=== PATIENT | male | born 1955 | race Caucasian/White ===

== ENCOUNTER → 2016-05-14 | Outpatient (CLI) | payer OTHER ==
[~2016-05-14] MED LIST: ASP81TEC PO; ATOR80TA76 PO; ATR20T PO; CARV6.252 PO; DABI150C5 PO; DIGO0.25 PO; FURO40TA4 PO; HYDR1TAB PO; LSNP20T PO; MAG OXIDE PO; METF-380 PO; PANT40TA3 PO; RIVA20TA PO; SIMV80TA3 PO; SPIR25TA3 PO
--- OUTSIDE RECORDS SUMMARY | 2016-05-14 15:24 | XMS REPORT | Continuity of Care Document ---
Author Author [facility] Organization [facility] Address Unknown Phone Unavailable Care Team Providers Care Supervisor [employer] Name Role Phone TEMO BARTH MD PCP Insurance Providers Payer Name Policy Number Subscriber Name Relationship [employer] [id number] Raul Carrillo 20 Self / Same As Patient Advance Directives Directive Response Recorded Date/Time Advance Directives No 12/24/15 1:20pm Health Care Power of Monument Erector No 12/24/15 1:20pm Organ Donor No 12/24/15 1:20pm Resuscitation Status Full Code 12/24/15 1:20pm Problems No problem information available. Medications Current Home Medications Medication Dose Units Route Directions Days/Qty Instructions Start Date Metformin Hcl (Glucophage) 1,000 Mg 1,000 Mg Oral Twice A Day With Meals 10/21/12 Lisinopril 20 Mg 20 Mg Oral Twice A Day 10/21/12 Atorvastatin Calcium 80 Mg 40 Mg Oral Daily 12/24/15 Furosemide 40 Mg 40 Mg Oral Daily 12/24/15 Spironolactone 25 Mg 25 Mg Oral Twice A Day 12/24/15 Carvedilol 6.25 Mg 6.25 Mg Oral Twice A Day 12/24/15 Digoxin 0.25 Mg/5 Ml 0.25 Mg Oral Daily 12/24/15 Rivaroxaban 20 Mg 20 Mg Oral Daily 12/24/15 Past Home Medications Medication Directions Ordered Status Aspirin 81 Mg Tabec, 81 Mg Oral Daily 10/21/12 Discontinued Simvastatin 80 Mg Tablet, 80 Mg Oral Daily 10/21/12 Discontinued Atorvastatin Calcium 20 Mg Tablet, 1 Each Oral Bedtime 10/21/12 Discontinued Atorvastatin Calcium 20 Mg Tablet, 20 Mg Oral Bedtime 11/25/12 Discontinued Acetaminophen/Hydrocodone Bitart 1 Each Tablet, 1 - 2 Each Oral Q4-6HRS as needed 11/29/12 Discontinued Social History Social History Problem Response Recorded Date/Time Alcohol Use Denies Use 10/21/2012 3:34am Recreational Drug Use No 10/21/2012 3:34am Recent Foreign Travel No 12/24/2015 1:20pm Recent Infectious Disease Exposure No 12/24/2015 1:20pm Smoking Status Never a Smoker 12/24/2015 1:29pm Query Response Start Date Stop Date Smoking Status Never a Smoker Hospital Discharge Instructions Patient Instructions Physician Instructions Follow Up/Plan F/u with Dr Randle on 12/27/15 Do not take METFORMIN until the morning of 12/27/15 CARDIAC CATH DISCHARGE INSTRUCTIONS *Hold Metformin for 48 hours post heart cath. ACTIVITY * Go Home directly and rest. * Limit activity of the leg (or wrist if it was used) for 7 days including aerobics, swimming, jogging, bicycling, etc. * Restrict stair-climbing for 7 days if possible, if not, climb up with your non-cath leg, then bring together on the same step. * Avoid lifting, pushing, pulling or excessive movement of the affected extremity for 7 days. * Customary sexual activity may be resumed after 2 days-use caution not to use a position that strains or causes pain to the affected extremity. * No driving for 24 hours. * NO SMOKING. * Avoid straining for bowel movements for 7 days. * Gentle walking on level ground is allowed. * Returning to work will depend on the type of procedure and the results. Your doctor will discuss this with you. CALL YOUR DOCTOR FOR ANY OF THE FOLLOWING: *If bleeding from the puncture site occurs- Apply gentle pressure to site with clean cloth and call your doctor or EMS. * If a knot or lump forms under the skin, increases in size, or causes pain. * If bruising appears to be worsening or moving further down your leg instead of disappearing. * Temperature above 101 F. CARE OF YOUR GROIN INCISION; * Bruising or purple discoloration of the skin near the puncture site is common. * You may shower only, no bathtub bathing for 5 days. Be careful to avoid slipping as your leg may feel stiff. * If a closure device was used on your femoral artery, please see the attached guide regarding care of the device and your leg. * REMOVE the dressing from your groin the next day after your procedure in the shower. CARE OF YOUR WRIST INCISION; * Bruising or purple discoloration of the skin near the puncture site is common. * You may shower. * DO NOT submerge wrist. * Remove dressing in 24 hours. Patient Instructions: Do not take METFORMIN until the morning of 12/27/15 Discharge Diet: Low Sodium Diet Pneu Vac Indicated: Yes Care Plan Patient Instructions:: Do not take METFORMIN until the morning of 12/27/15 Plan of Care Discharge Date 12/24/15 8:22pm Instructions/Education Provided CARDIAC CATH DISCHARGE INSTRUC Prescriptions See Medication Section Functional Status Query Response Date Recorded Patient Orientation Person Place Time Situation December 24, 2015 8:36pm Allergies, Adverse Reactions, Alerts No known allergies. Immunizations No immunization records. Vital Signs Acute Vital Signs Vital Response Date/Time Temperature (Fahrenheit) 97.4 degrees F (97.6 - 99.5) 12/24/2015 4:20pm Temperature (Calculated Celsius) 36.49523 degrees C (36.4 - 37.5) 12/24/2015 4:20pm Temperature Source Temporal 12/24/2015 4:20pm Pulse Rate (adult) 89 bpm (60 - 90) 12/24/2015 7:30pm Respiratory Rate 13 bpm (12 - 24) 12/24/2015 7:30pm O2 Sat by Pulse Oximetry 94 % (88 - 100) 12/24/2015 7:30pm Blood Pressure 104/81 mm Hg 12/24/2015 7:30pm Blood Pressure Mean 89 mm Hg 12/24/2015 7:30pm Pain Numeric Pain Scale 0-No Pain 12/24/2015 8:00pm Height (Feet) 5 feet 12/24/2015 1:25pm Height (Inches) 9.00 inches 12/24/2015 1:25pm Height (Calculated Centimeters) 175.380564 cm 12/24/2015 1:25pm Weight (Pounds) 260 pounds 12/24/2015 1:25pm Weight (Ounces) 0.0 oz 12/24/2015 1:25pm Weight (Calculated Grams) 536018.02 gm 12/24/2015 1:25pm Weight (Calculated Kilograms) 117.600183 kilograms 12/24/2015 1:25pm Calculated BMI 38.4 12/24/2015 1:25pm Capillary Refill Capillary Refill Less Than 3 Seconds 12/24/2015 8:00pm Capillary Refill Capillary Refill Less Than 3 Seconds 12/24/2015 8:00pm Results Pending Laboratory Results Test Name Collection Date/Time Procedures Procedure Status Date Provider(s) Tracing only of electrocardiogram Active 12/24/15 AVERY RANDLE MD, FACP FACC CCDS Encounters Encounter Location Arrival/Admit Date Discharge/Depart Date Attending Provider Departed [facility] 12/24/15 1:09pm 8:22pm AVERY RANDLE FACP, MD, FACC Registered Clinic [facility] 12/17/15 12:35pm AVERY RANDLE FACP, MDC
== END ==
LOC: LAB 15:21
PROVIDERS: ATTEND Internal Medicine Critical Care Medicine
DX: J20.9 Acute bronchitis, unspecified (principal); J32.1 Chronic frontal sinusitis
CPT/HCPCS: 87804

== ENCOUNTER → 2017-04-01 | Outpatient (CLI) | payer OTHER ==
[2017-04-01 09:01] LABS: BASOPHILS # (AUTO) 0.1 10^3/uL (0.0-0.1); BASOPHILS % (AUTO) 1 % (0-10); EOSINOPHILS # (AUTO) 0.6 10^3/uL (0.0-0.3); EOSINOPHILS % (AUTO) 4 % (0-10); HEMATOCRIT 43 % (40-54); HEMOGLOBIN 15.3 G/DL (13.3-17.7); LYMPHOCYTES # (AUTO) 2.4 X 10^3 (1.0-4.0); LYMPHOCYTES % (AUTO) 16 % (12-44); MEAN CORPUSCULAR HEMOGLOBIN 30 PG (25-34); MEAN CORPUSCULAR HGB CONC 36 G/DL (32-36); MEAN CORPUSCULAR VOLUME 83 FL (80-99); MEAN PLATELET VOLUME 9.2 FL (7.4-10.4); MONOCYTES # (AUTO) 1.2 X 10^3 (0.0-1.0); MONOCYTES % (AUTO) 8 % (0-12); NEUTROPHILS # (AUTO) 11.1 X 10^3 (1.8-7.8); NEUTROPHILS % (AUTO) 72 % (42-75); PLATELET COUNT 325 10^3/uL (130-400); RED BLOOD COUNT 5.14 10^6/uL (4.35-5.85); RED CELL DISTRIBUTION WIDTH 12.5 % (10.0-14.5); WHITE BLOOD COUNT 15.4 10^3/uL (4.3-11.0)
[2017-04-01 09:26] LABS: BILIRUBIN,TOTAL 0.6 MG/DL (0.1-1.0); CALCIUM 10.1 MG/DL (8.5-10.1); CREATININE SERUM 1.51 MG/DL (0.60-1.30); POTASSIUM 4.6 MMOL/L (3.6-5.0); TOTAL PROTEIN 7.2 GM/DL (6.4-8.2)
[2017-04-01 09:32] LABS: BAND NEUTROPHILS 2 %; BASOPHILS % (MANUAL) 1 %; EOSINOPHILS % (MANUAL) 6 %; LYMPHOCYTES % (MANUAL) 13 %; MONOCYTES % (MANUAL) 5 %; NEUTROPHILS % (MANUAL) 73 %; RBC MORPH NORMAL
[2017-04-01 09:46] LABS: DIGOXIN 1.28 NG/ML (0.80-2.00)
== END ==
LOC: CARD 08:43
PROVIDERS: ATTEND Internal Medicine Cardiovascular Disease
DX: R06.02 Shortness of breath (principal); E66.09 Other obesity due to excess calories; I48.2 Chronic atrial fibrillation; I42.0 Dilated cardiomyopathy; E11.9 Type 2 diabetes mellitus without complications; G47.33 Obstructive sleep apnea (adult) (pediatric)
CPT/HCPCS: 36415; 80053; 80061; 80162; 83735; 84443; 85007; 85027; 93306

== ENCOUNTER → 2017-04-05 | Outpatient (CLI) | payer OTHER | LOC: CARD 07:44 | PROVIDERS: ATTEND Internal Medicine Cardiovascular Disease | DX: R06.02 Shortness of breath (principal); E66.09 Other obesity due to excess calories; I48.2 Chronic atrial fibrillation; I42.0 Dilated cardiomyopathy; E11.9 Type 2 diabetes mellitus without complications; G47.33 Obstructive sleep apnea (adult) (pediatric) | CPT/HCPCS: 93225; 93226 ==

== ENCOUNTER → 2017-04-07 | Outpatient (CLI) | payer OTHER ==
[~2017-04-07] MED LIST changes: +RT-ALBUTEROL SULF 2.5 MG/3 ML PRE-MIX VIAL INH ONE
== END ==
LOC: RT 08:19
PROVIDERS: ATTEND Internal Medicine Cardiovascular Disease
DX: R06.02 Shortness of breath (principal); E66.09 Other obesity due to excess calories; I48.2 Chronic atrial fibrillation; I42.0 Dilated cardiomyopathy; E11.9 Type 2 diabetes mellitus without complications; G47.33 Obstructive sleep apnea (adult) (pediatric)
CPT/HCPCS: 94060; 94726; 94729

== ENCOUNTER → 2018-04-19 | Outpatient (CLI) | payer OTHER ==
[~2018-04-19] MED LIST changes: -RT-ALBUTEROL SULF 2.5 MG/3 ML PRE-MIX VIAL INH ONE; -SPIR25TA3 PO; +SPIR25TA5 PO
== END ==
LOC: CARD 14:17
PROVIDERS: ATTEND Nurse Practitioner Family
DX: I48.2 Chronic atrial fibrillation (principal)
CPT/HCPCS: 93225; 93226

== ENCOUNTER → 2018-06-24 | Outpatient (CLI) | payer OTHER ==
--- NOTE | 2018-06-24 20:54 | Diagnostic Imaging Report ---
EXAMINATION: Magnetic resonance imaging of the left knee without intravenous contrast DATE: June 24, 2018. COMPARISON: None. INDICATION: 63-year-old male, left knee pain, swelling, popping. TECHNIQUE: Multiplanar, multisequence non contrast enhanced MR imaging was accomplished. FINDINGS: MENISCI: There is a full-thickness radially oriented tear involving the posterior root attachment of the medial meniscus. There is an additional oblique undersurface tear involving the body and posterior horn of the medial meniscus. There is a 5 mm medial meniscal extrusion. The lateral meniscus is intact. LIGAMENTS AND TENDONS: The anterior and posterior cruciate ligaments are intact. The medial collateral ligament is intact. The iliotibial band, mid third lateral capsular ligament, fibular collateral ligament, biceps femoris tendon and conjoined tendon are intact. The quadriceps tendon and patella ligament are intact. JOINT: There is mild thinning of the cartilage of the medial patellar facet. There is minimal irregularity of the median patellar ridge cartilage. There are broad areas of approximately 75% cartilage loss of the medial compartment. The lateral compartment cartilage is grossly intact. There is a trace to small knee joint effusion without identified intra-articular body or prominent synovitis. BONE: There is low level degenerative related marrow edema adjacent to the medial compartment. There is no acute fracture, bone contusion or evidence of osteonecrosis. BURSAE AND SOFT TISSUES: There is a Lees's cyst. There is also fluid in the semimembranosus bursa compatible with semimembranosus bursitis. There is fairly generalized subcutaneous edema. IMPRESSION: 1. Full-thickness radially oriented tear involving the posterior root attachment of the medial meniscus as well as additional oblique undersurface tear involving the body and posterior horn of the medial meniscus. 5 mm medial meniscal extrusion. 2. Intact lateral meniscus. 3. Intact anterior and posterior cruciate ligaments. Additional ligaments and tendons are intact. 4. 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 Trace of small knee joint effusion without identified intra-articular body or prominent synovitis. 5. No acute fracture or bone contusion. 6. Small Lees's cyst. Fluid in the semimembranosus bursa compatible with semimembranosus bursitis. Dictated by: Dictated on workstation # [id number]
== END ==
LOC: RAD 15:21
PROVIDERS: ATTEND Nurse Practitioner
DX: M23.222 Derangement of posterior horn of medial meniscus due to old tear or injury, left knee (principal); M71.22 Synovial cyst of popliteal space [Baker], left knee; M17.12 Unilateral primary osteoarthritis, left knee
CPT/HCPCS: 73721

== ENCOUNTER 2018-07-25 06:15 | Outpatient (CLI) | payer OTHER ==
[~2018-07-25] VITALS: Ht 175.3 cm; Wt 117.9 kg
[~2018-07-25 06:15] MED LIST changes: -RIVA20TA PO; +RIVA20TA2 PO
[2018-07-25] MEDS ORDERED: METO-370 PO (12:39)
[2018-07-25] MEDS ORDERED: SIMV40TA4 PO (12:39)
[2018-07-25] MEDS ORDERED: MAGN400T50 PO (12:39)
[2018-07-25] MEDS ORDERED: PIOG30TA71 PO (12:39)
[2018-07-25] MEDS ORDERED: GLIM4TAB PO (12:39)
[2018-07-25] MEDS ORDERED: DIGO250T PO (12:39)
[2018-07-25] MEDS ORDERED: METF-399 PO (12:39)
[2018-07-25] MEDS ORDERED: OMEG100032 PO (12:43)
== END 2018-07-25 12:47 | disposition home or self-care (01) ==
LOC: PREOP 06:15
PROVIDERS: ATTEND Orthopaedic Surgery
DX: Z01.818 Encounter for other preprocedural examination (principal)

== ENCOUNTER 2018-07-27 06:05 | Day surgery (SDC) | payer OTHER ==
[~2018-07-27] VITALS: Ht 175.3 cm; Wt 117.9 kg
[2018-07-27] VITALS (14 sets, daily range): BP systolic 80–125; BP diastolic 50–88
[~2018-07-27 06:05] MED LIST changes: +DIGO250T PO; +GLIM4TAB PO; +MAGN400T50 PO; +METF-399 PO; +METO-370 PO; +OMEG100032 PO; +PIOG30TA71 PO; +SIMV40TA4 PO
[2018-07-27] MEDS ORDERED: ceFAZolin INJECTION 1,000 MG in WATER (STERILE) FOR INJECTION 10 ML IV ONE (06:30)
[2018-07-27] MEDS ORDERED: morphine PF (DURAMORPH) 10 MG/10 ML AMP ONE (06:55)
[2018-07-27] MEDS ORDERED: BUPIVACAINE 0.25% 30 ML (SENSORCAINE) VIAL ONE (06:55)
[2018-07-27] MEDS ORDERED: ROCURONIUM 10 MG/ML 5 ML SYRINGE IV ONE ×2 (07:15→08:02)
[2018-07-27] MEDS ORDERED: proPOfol 200 MG/20 ML (DIPRIVAN) VIAL IV ONE (07:15)
[2018-07-27] MEDS ORDERED: SEVOFLURANE (ULTANE) 15 ML INHAL SOLN ONE ×4 (07:15→08:17)
[2018-07-27] MEDS ORDERED: fentaNYL INJECTION 100 MCG/2 ML AMP ONE (07:15)
[2018-07-27] MEDS ORDERED: ONDANSETRON 4 MG/2 ML (SDV) Z0FRAN ONE (07:15)
[2018-07-27] MEDS ORDERED: LIDOCAINE PF 2% 5 ML (XYLOCAINE) VIAL ONE (07:15)
[2018-07-27] MEDS ORDERED: DEXAMETHASONE 10 MG/ML (DECADRON) 1 ML VIAL ONE (07:15)
[2018-07-27] MEDS: LACTATED RINGERS 1,000 ML IV PRN ×3 (07:15→09:30)
[2018-07-27] MEDS ORDERED: MIDAZOLAM 2 MG/2 ML (VERSED) VIAL ONE (07:16)
[2018-07-27] MEDS ORDERED: HYDROcodone/APAP 7.5 MG/325 MG (LORTAB, LORCET PLUS) TABLET PO PRN (07:30)
--- NOTE | 2018-07-27 07:32 | Progress Note-Pre Operative ---
Pre-Operative Progress Note H&P Reviewed The H&P was reviewed, patient examined and no changes noted. Date Seen by Provider: July 27, 2018 Time Seen by Provider: 07:20 Date H&P Reviewed: July 27, 2018 Time H&P Reviewed: 07:20 Pre-Operative Diagnosis: left knee medial meniscus tear and chondromalacia STAN COSME MD July 27, 2018 07:32
--- NOTE | 2018-07-27 07:33 | Progress Note-Post Operative ---
Post-Operative Progess Note Surgeon (s)/Service Loss Control Consultant (s) Surgeon STAN CSOME MD Service Loss Control Consultant: Luis Angel Gonzalez Pre-Operative Diagnosis left knee medial meniscus tear and chondromalacia Post-Operative Diagnosis left knee medial meniscus tear and chondromalacia of the medial femoral condyle, medial tibial plateau and patella Procedure & Operative Findings Date of Procedure 07/27/18 Procedure Performed/Findings left knee arthroscopic partial medial meniscectomy and chondroplasty of the medial femoral condyle, medial tibial plateau, lateral tibial plateau and patella Anesthesia Type GETA Estimated Blood Loss Estimated blood loss (mL): minimal Specimens/Packing Specimens Removed none Packing: none STAN COSME MD July 27, 2018 07:33
[2018-07-27] MEDS ORDERED: ESMOLOL 100 MG/10 ML (BREVIBLOC) VIAL ONE (08:02)
[2018-07-27] MEDS ORDERED: morphine INJ 10 MG/ML 1ML (SYR OR VIAL) ONE (08:36)
[2018-07-27] MEDS ORDERED: HYDROmorphone 2 MG/ML VIAL (DILAUDID) IV ONE (09:00)
[2018-07-27] MEDS ORDERED: morphine INJ 10 MG/ML 1ML (SYR OR VIAL) IVP ONE (09:00)
[2018-07-27] MEDS ORDERED: HYDR-3816 PO (09:01)
--- NOTE | 2018-07-27 10:47 | Physical Therapy Ortho Eval ---
PT Orthopedic Evaluation Type of Surgery Knee Scope left side Prior Level of Function Current Living Status: Children Locomotion (Upon Admit): Independent Established Durable Medical Eq: Crutches Subjective Subjective Patient sitting EOB pre tx, agrees to PT, has 3/10 pain in left knee. Entry Into Home: Stairs Without Railing Steps Into Home: 3 Motor Control Motor Control: Motor Control WNL ROM left knee extension +3 degrees, flexion 85 degrees Transfer Transfers (B, C, W/C) (FIM): 5 Gait Gait Assistive Device: FWW Left Lower Extremity: Left Weight Bearing Status LLE: Weight Bearing/Tolerated Gait (FIM): 5 Distance: 150' Gait Level of Assist: 5 Summary/Comments Patient ambulated 150' with a rolling walker with SBA. Gait was slow but steady , no LOB. Patient also went up and down 1 step using a rolling walker with SBA and cues for foot placement. Treatment Rendered Treatment: Therapeutic Exercises, Gait Train, Step Train Exercise Instruction: Quad Sets, Heel Slides, Ankle Pumps Assessment/Goals Goal Time Frame: 1 Visit Understands HEP: Yes Safe Ambulation: Yes Plan Treatment Plan: Discharge PT/Family Agrees to Plan: Yes Time Time In: 1022 Time Out: 1035 Total Billed Treatment Time: 13 Billed Treatment Time 1 visit KEANU Riberio' JORDANA TELLES PT July 27, 2018 10:47
--- NOTE | 2018-07-27 12:54 | Anesthesia-General Post-Op ---
General Patient Condition Mental Status/LOC: Same as Preop Cardiovascular: Satisfactory Nausea/Vomiting: Absent Respiratory: Satisfactory Pain: Controlled Complications: Absent Post Op Complications Complications None Follow Up Care/Instructions Patient Instructions None needed. Anesthesia/Patient Condition Patient Condition Patient is doing well, no complaints, stable vital signs, no apparent adverse anesthesia problems. No complications reported per nursing. BRENTON LAGUNA CRNA July 27, 2018 12:54
--- NOTE | 2018-07-27 13:27 | OPERATIVE REPORT ---
DATE OF SERVICE: 07/27/2018 PREOPERATIVE DIAGNOSES: 1. Left knee medial meniscus tear. 2. Left knee chondromalacia of the medial femoral condyle. 3. Left knee chondromalacia of the medial tibial plateau. POSTOPERATIVE DIAGNOSES: 1. Left knee medial meniscus tear. 2. Left knee chondromalacia of the medial femoral condyle. 3. Left knee chondromalacia of the medial tibial plateau. 4. Left knee chondromalacia of the lateral tibial plateau. 5. Left knee chondromalacia of the patella. PROCEDURES: 1. Left knee arthroscopic partial medial meniscectomy. 2. Left knee arthroscopic chondroplasty of the medial femoral condyle. 3. Left knee arthroscopic chondroplasty of the medial tibial plateau. 4. Left knee arthroscopic chondroplasty of the patella. SURGEON: Ramone Cosme MD DAIRY TECHNICIAN: FÉLIX Ball, who assisted throughout the procedure and closed the incisions. ANESTHESIA: General endotracheal by Sachi Michel CRNA. TOURNIQUET TIME: Not applicable. ESTIMATED BLOOD LOSS: Minimal. DRAINS: None. COMPLICATIONS: None. POSTOPERATIVE PLAN: Routine arthroscopy protocol. The patient was transferred to the recovery room awake and in stable condition. STATEMENT OF MEDICAL NECESSITY: The patient is a 63-year-old gentleman with complaints of left medial knee pain, catching, locking and swelling. An MRI revealed a posterior horn medial meniscus tear as well as chondromalacia of his medial compartment. He has tried rest, activity modifications and anti-inflammatories, but had continued symptoms and interference with activities of daily living. Due to this, the patient elected to proceed with surgical intervention. Examination under anesthesia revealed range of motion of 0/2/130 with a negative Laci, negative anterior and posterior drawer. No varus valgus laxity and negative pivot shift. Arthroscopic findings, the patella demonstrated grade II chondral flap centrally in a 10 x 10 area. Trochlea demonstrated no gross chondral abnormalities. The medial and lateral gutters were clear. The ACL and PCL were intact. Medial compartment demonstrated a horizontal tear of the posterior horn of the medial meniscus involving approximately one-third of the posterior horn. In addition, there were grade II-III chondral flaps over the central portion of the femoral condyle and tibial plateau and adjacent 10 x 10 areas. The lateral compartment demonstrated grade III chondral flap in the central portion of the tibial plateau in a 10 x 12 area. DESCRIPTION OF PROCEDURE: After risks and benefits of procedure were discussed and questions were answered and informed consent was signed and placed on chart, the operative site was confirmed in the preoperative holding area and initialed by the surgeon. The patient was transferred to the operating room and after adequate levels of general endotracheal anesthetic were obtained, a timeout was called confirming the operative site. Examination under anesthesia was performed with above findings noted. The left lower extremity was prepped and draped in the usual sterile fashion. The knee joint was injected with 60 mL of fluid. A standard inferolateral portal was placed with the arthroscope under direct visualization, inferior medial portal was created. The menisci and cruciates were carefully probed with the findings noted. The unstable chondral flaps of the patella were debrided with shaver back to a stable edge. Scope was redirected into the medial compartment. Unstable chondral flaps of the medial tibial plateau and medial femoral condyle were debrided with a shaver back to a stable edge. The posterior horn of the medial meniscus was debrided with the biter and shaver removing approximately one-third of the posterior horn. The scope was then redirected into the lateral compartment with unstable chondral flaps and the lateral tibial plateau were debrided with a shaver back to a stable edge. The knee was copiously irrigated. Port sites were closed with 4-0 nylon in simple interrupted fashion. Knee was injected with Duramorph. The portal sites were infiltrated with plain Marcaine. Soft dressing was applied and the patient was transferred to the recovery room in awake and stable condition. Job ID: [id number] DocumentID: [id number] Dictated Date: 07/27/2018 08:24:22 Manager Intermediate Date: 07/27/2018 13:27:09 Dictated By: RAMONE COSME MD
== END 2018-07-27 10:40 | disposition home or self-care (01) ==
LOC: SDC 06:05
PROVIDERS: ATTEND Orthopaedic Surgery
DX: M23.322 Other meniscus derangements, posterior horn of medial meniscus, left knee (principal); M22.42 Chondromalacia patellae, left knee; Z11.2 Encounter for screening for other bacterial diseases; E11.9 Type 2 diabetes mellitus without complications; E78.5 Hyperlipidemia, unspecified; K21.9 Gastro-esophageal reflux disease without esophagitis; I49.9 Cardiac arrhythmia, unspecified; I10 Essential (primary) hypertension; I48.91 Unspecified atrial fibrillation; G47.33 Obstructive sleep apnea (adult) (pediatric); Z79.84 Long term (current) use of oral hypoglycemic drugs; Z79.899 Other long term (current) drug therapy
CPT/HCPCS: 82962; 87081

== ENCOUNTER → 2018-11-08 | Outpatient (CLI) | payer OTHER ==
[~2018-11-08] MED LIST changes: +HYDR-3816 PO
--- NOTE | 2018-11-08 15:26 | Diagnostic Imaging Report ---
PROCEDURE: MRI lumbar spine. TECHNIQUE: Multiplanar, multisequence MRI of the lumbar spine was performed without contrast. INDICATION: Low back pain as well as bilateral hip and knee pain. COMPARISON: No prior studies are available for comparison. FINDINGS: Curvature and alignment of the lumbar spine is normal. Vertebral body heights and marrow signal intensity are normal. No geographic marrow lesion or fracture is seen. The disc spaces are well-maintained. There is mild generalized desiccation noted. The conus is unremarkable at the T12-L1 level. T12-L1: Central canal is widely patent. Neural foramina appear patent. L1-2: Central canal and neural foramina are patent. L2-3: Minimal ligamentous thickening and facet changes are noted. Central canal and neural foramina are patent. L3-4: Mild facet changes are noted. There is no central canal stenosis. There is mild to moderate bilateral neural foramina narrowing. L4-5: Hypertrophic facet changes are noted. There is indentation of the ventral thecal sac due to annular bulging. Central canal remains patent. There is narrowing of bilateral lateral recesses as well as moderate left and mild to moderate right neural foraminal stenosis. L5-S1: Central canal is patent. There is bilateral lateral recess narrowing due to broad-based disc/osteophyte complex. Neural foramina are patent bilaterally. Paraspinous tissues are unremarkable. IMPRESSION: Lower lumbar spondylosis with multilevel lateral recess and neural foraminal narrowing described level by level above. No significant central canal stenosis is seen. No acute compression fracture is detected. Dictated by: Dictated on workstation # [id number]
== END ==
LOC: RAD 14:23
PROVIDERS: ATTEND Orthopaedic Surgery
DX: M47.26 Other spondylosis with radiculopathy, lumbar region (principal); M48.07 Spinal stenosis, lumbosacral region
CPT/HCPCS: 72148

== ENCOUNTER → 2019-04-20 | Outpatient (CLI) | payer MEDICAID, OTHER ==
[~2019-04-20] MED LIST changes: -DIGO250T PO; +DIGO250T3 PO; -GLIM4TAB PO; +GLIM4TAB3 PO; -METO-370 PO; +METO50TA7 PO; +SIMV40TA25 PO; -SIMV40TA4 PO
== END ==
LOC: CARD 12:47
PROVIDERS: ATTEND Nurse Practitioner Family
DX: I42.0 Dilated cardiomyopathy (principal); I10 Essential (primary) hypertension; I48.91 Unspecified atrial fibrillation; G47.33 Obstructive sleep apnea (adult) (pediatric); I34.0 Nonrheumatic mitral (valve) insufficiency
CPT/HCPCS: 93306

== ENCOUNTER → 2019-04-20 | Outpatient (CLI) | payer OTHER ==
[2019-04-20 13:41] LABS: CALCIUM 10.7 MG/DL (8.5-10.1); CREATININE SERUM 1.44 MG/DL (0.60-1.30); POTASSIUM 4.5 MMOL/L (3.6-5.0)
== END ==
LOC: LAB 12:51
PROVIDERS: ATTEND Internal Medicine Cardiovascular Disease
DX: I42.0 Dilated cardiomyopathy (principal); I10 Essential (primary) hypertension; I48.91 Unspecified atrial fibrillation; G47.33 Obstructive sleep apnea (adult) (pediatric)
CPT/HCPCS: 36415; 80048; 80162

== ENCOUNTER → 2021-07-04 | Outpatient (CLI) | payer MEDICARE ==
[~2021-07-04] MED LIST changes: -GLIM4TAB3 PO; +GLIM4TAB5 PO; +HYDR-34 PO; -HYDR-3816 PO; -PANT40TA3 PO; +PANT40TA52 PO
[2021-07-04 16:01] LABS: POTASSIUM 3.9 MMOL/L (3.6-5.0)
[2021-07-04 16:02] LABS: CALCIUM 9.8 MG/DL (8.5-10.1)
[2021-07-04 16:06] LABS: BILIRUBIN,TOTAL 0.5 MG/DL (0.1-1.0)
[2021-07-04 16:07] LABS: CREATININE SERUM 1.45 MG/DL (0.60-1.30)
[2021-07-04 16:09] LABS: HEMATOCRIT 47 % (40-54); HEMOGLOBIN 15.7 g/dL (13.3-17.7); MEAN CORPUSCULAR HEMOGLOBIN 30 pg (25-34); MEAN CORPUSCULAR HGB CONC 34 g/dL (32-36); MEAN CORPUSCULAR VOLUME 88 fL (80-99); MEAN PLATELET VOLUME 9.7 fL (9.0-12.2); PLATELET COUNT 300 10^3/uL (130-400); WHITE BLOOD COUNT 8.8 10^3/uL (4.3-11.0)
== END ==
LOC: CARD 14:45
PROVIDERS: ATTEND Internal Medicine Cardiovascular Disease
DX: I08.0 Rheumatic disorders of both mitral and aortic valves (principal); I11.9 Hypertensive heart disease without heart failure; I48.21 Permanent atrial fibrillation; I42.0 Dilated cardiomyopathy; G47.33 Obstructive sleep apnea (adult) (pediatric); Z79.01 Long term (current) use of anticoagulants
CPT/HCPCS: 36415; 80053; 80061; 80162; 84443; 85027; 93306

== ENCOUNTER → 2021-08-29 | Outpatient (CLI) | payer MEDICARE | LOC: LAB 12:24 | PROVIDERS: ATTEND Internal Medicine Cardiovascular Disease | DX: E78.2 Mixed hyperlipidemia (principal) ==

== ENCOUNTER → 2021-09-01 | Outpatient (CLI) | payer MEDICARE ==
[2021-09-01 11:52] LABS: ALBUMIN 4.3 GM/DL (3.2-4.5); CALCIUM 10.1 MG/DL (8.5-10.1); CREATININE SERUM 1.64 MG/DL (0.60-1.30); POTASSIUM 4.1 MMOL/L (3.6-5.0); TOTAL PROTEIN 7.9 GM/DL (6.4-8.2)
== END ==
LOC: LAB 11:14
PROVIDERS: ATTEND Internal Medicine Cardiovascular Disease
DX: E78.2 Mixed hyperlipidemia (principal)
CPT/HCPCS: 36415; 80053; 80061

== ENCOUNTER 2023-02-13 04:24 | Emergency (ER) | payer MEDICARE ==
--- NOTE | 2023-02-13 04:37 | ED Cardiac General ---
History of Present Illness General Chief Complaint: Chest Pain Stated Complaint: CP,SOB,SHOULDER & HEAD PX Source: patient Exam Limitations: no limitations History of Present Illness Date Seen by Provider: Feb 13, 2023 Time Seen by Provider: 04:38 Initial Comments Patient is a 68-year-old male who presents to the emergency room with a chief complaint of mid chest pain, bilateral shoulder pain and headache onset yesterday afternoon. He states the discomfort has been steadily worsening. He has not taken anything for the pain. He endorses mild nausea and shortness of breath. No history of coronary artery disease. He does have a history of cardiomyopathy. He has not vomited. No reported fever. No productive cough. No sick contacts. No significant swelling in his legs or pain in his calves. He states that the pain is currently a "8". He states walking into the emergency room seemed to worsen his symptoms. He cannot recall his last heart cath, his pct is Dr. Randle. He last saw him about 3 months ago. No recent changes to his medications. He is chronically anticoagulated on Xarelto. No problems with bowel or bladder. Known history of atrial fibrillation. 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 APPRENTICE: No ASA po PAINTER AND PAPERHANGER APPRENTICE: No Associated Systoms: Malaise, Nausea/Vomiting, Shortness of Air, Weakness Allergies and Home Medications Allergies Coded Allergies: No Known Drug Allergies (Unverified , 10/21/12) Patient Home Medication List Home Medication List Reviewed: Yes Dabigatran Etexilate Mesylate (Pradaxa) 150 Mg Capsule, 150 MG PO BID, (Reported) Entered as Reported by: LISETTE MATHUR on 03/09/16 1206 Digoxin (Digoxin) 250 Mcg Tablet, 250 MCG PO DAILY, (Reported) Entered as Reported by: TIANA ANDERSON on 07/25/18 1239 Furosemide (Furosemide) 40 Mg Tablet, 40 MG PO DAILY, (Reported) Entered as Reported by: JOSH LOVE on 12/24/15 1345 Glimepiride (Glimepiride) 4 Mg Tablet, 4 MG PO DAILY, (Reported) Entered as Reported by: TIANA ANDERSON on 07/25/18 1239 Hydrocodone Bit/Acetaminophen (HYDROcodone/APAP 7.5/325 TAB) 1 Each Tablet, 1 TAB PO Q4H Prescribed by: SALVADOR GRIMALDO on 07/27/18 0901 Magnesium Oxide (Magnesium Oxide) 400 Mg Tablet, 400 MG PO DAILY, (Reported) Entered as Reported by: TIANA ANDERSON on 07/25/18 1239 Metformin HCl (Metformin HCl) 1,000 Mg Tablet, 1,000 MG PO BID, (Reported) Entered as Reported by: TIANA ANDERSON on 07/25/18 1239 Metoprolol Succinate (Metoprolol Succinate) 50 Mg Tab.er.24h, 50 MG PO DAILY, (Reported) Entered as Reported by: TIANA ANDERSON on 07/25/18 1239 [place]-3/Dha/Epa/Fish Oil (Fish Oil 1,000 mg Softgel) 1,000 Mg Capsule, 2,000 MG PO BID, (Reported) Entered as Reported by: TIANA ANDERSON on 07/25/18 1243 Pantoprazole Sodium (Pantoprazole Sodium) 40 Mg Tablet.dr, 40 MG PO DAILY, (Reported) Entered as Reported by: LISETTE MATHUR on 03/09/16 1206 Pioglitazone HCl (Pioglitazone HCl) 30 Mg Tablet, 30 MG PO DAILY, (Reported) Entered as Reported by: TIANA ANDERSON on 07/25/18 1239 Simvastatin (Simvastatin) 40 Mg Tablet, 40 MG PO DAILY, (Reported) Entered as Reported by: TIANA ANDERSON on 07/25/18 1239 Spironolactone (Spironolactone) 25 Mg Tablet, 25 MG PO DAILY, (Reported) Entered as Reported by: JOSH LOVE on 12/24/15 1345 Review of Systems Review of Systems Constitutional: see HPI EENTM: No Symptoms Reported Respiratory: Shortness of Air, SOA With Exertion Cardiovascular: Chest Pain Gastrointestinal: Nausea Genitourinary: No Symptoms Reported Musculoskeletal: back pain Skin: no symptoms reported All Other Systems Reviewed Negative Unless Noted: Yes Past Zwbcayu-Fbvjac-Jutssz Hx Seasonal Allergies Seasonal Allergies: No Past Medical History Surgeries: Yes Appendectomy, Gallbladder Respiratory: Yes Sleep Apnea Currently Using CPAP: Yes Cardiac: Yes Atrial Fibrillation, Hypertension Neurological: No Reproductive Disorders: No Genitourinary: No Gastrointestinal: No Musculoskeletal: Yes (left knee) Arthritis Endocrine: Yes Diabetes, Non-Insulin dep HEENT: No Cancer: No Psychosocial: No Integumentary: No Blood Disorders: No Physical Exam Vital Signs Vital Signs - First Documented 02/13/23 04:34 Temp 36.2 Pulse 61 Resp 16 B/P (MAP) 136/86 (103) Pulse Ox 97 O2 Delivery Room Air Capillary Refill : Height, Weight, BMI Height: 5'9.00" Weight: 260lbs. 0.0oz. [phone]; 38.4 BMI Method:Stated General Appearance: No Apparent Distress, WD/WN, Obese HEENT: PERRL/EOMI Neck: Normal Inspection Respiratory: Lungs Clear, Normal Breath Sounds, No Accessory Muscle Use, No Respiratory Distress Cardiovascular: Irregularly Irregular Gastrointestinal: Non Tender, Soft Extremity: Normal Capillary Refill, Normal Inspection, No Pedal Edema Neurologic/Psychiatric: Alert, Oriented x3, No Motor/Sensory Deficits, Normal Mood/Affect Skin: Normal Color, Warm/Dry Progress/Results/Core Measures Results/Orders Lab Results Laboratory Tests Test 02/13/23 04:40 02/13/23 04:46 02/13/23 05:35 Range/Units White Blood Count 15.4 H 4.3-11.0 10^3/uL Red Blood Count 5.58 H 4.30-5.52 10^6/uL Hemoglobin 16.9 13.3-17.7 g/dL Hematocrit 49 40-54 % Mean Corpuscular Volume 88 80-99 fL Mean Corpuscular Hemoglobin 30 25-34 pg Mean Corpuscular Hemoglobin Concent 34 32-36 g/dL Red Cell Distribution Width 12.0 10.0-14.5 % Platelet Count 350 130-400 10^3/uL Mean Platelet Volume 9.4 9.0-12.2 fL Immature Granulocyte % (Auto) 1 % Neutrophils (%) (Auto) 72 42-75 % Lymphocytes (%) (Auto) 17 12-44 % Monocytes (%) (Auto) 7 0-12 % Eosinophils (%) (Auto) 3 0-10 % Basophils (%) (Auto) 1 0-10 % Neutrophils # (Auto) 11.1 H 1.8-7.8 10^3/uL Lymphocytes # (Auto) 2.6 1.0-4.0 10^3/uL Monocytes # (Auto) 1.0 0.0-1.0 10^3/uL Eosinophils # (Auto) 0.5 H 0.0-0.3 10^3/uL Basophils # (Auto) 0.1 0.0-0.1 10^3/uL Immature Granulocyte # (Auto) 0.1 0.0-0.1 10^3/uL Neutrophils % (Manual) 73 % Lymphocytes % (Manual) 14 % Monocytes % (Manual) 7 % Eosinophils % (Manual) 1 % Reactive Lymphocytes 5 % Prothrombin Time 14.5 12.2-14.7 SEC INR Comment 1.1 0.8-1.4 Activated Partial Thromboplast Time 34 24-35 SEC Sodium Level 133 L 135-145 MMOL/L Potassium Level 4.3 3.6-5.0 MMOL/L Chloride Level 100 98-107 MMOL/L Carbon Dioxide Level 24 21-32 MMOL/L Anion Gap 9 5-14 MMOL/L Blood Urea Nitrogen 18 7-18 MG/DL Creatinine 1.44 H 0.60-1.30 MG/DL Estimat Glomerular Filtration Rate 54 BUN/Creatinine Ratio 13 Glucose Level 196 H 70-105 MG/DL Calcium Level 9.9 8.5-10.1 MG/DL Corrected Calcium 9.8 8.5-10.1 MG/DL Magnesium Level 2.3 1.6-2.4 MG/DL Total Bilirubin 0.7 0.1-1.0 MG/DL Aspartate Amino Transf (AST/SGOT) 18 5-34 U/L Alanine Aminotransferase (ALT/SGPT) 31 0-55 U/L Alkaline Phosphatase 32 L 40-136 U/L Troponin I < 0.028 <0.028 NG/ML Total Protein 7.6 6.4-8.2 GM/DL Albumin 4.1 3.2-4.5 GM/DL Glucometer 199 H 70-110 MG/DL SARS-CoV-2 RNA (RT-PCR) Not Detected Not Detecte My Orders Orders - JOE IBRAHIM MD Ekg Tracing (02/13/23 04:42) Cbc And Automated Diff (02/13/23 04:49) Magnesium (02/13/23 04:49) Chest 1 View, Ap/Pa Only (02/13/23 04:49) Comprehensive Metabolic Panel (02/13/23 04:49) Protime With Inr (02/13/23 04:49) Partial Thromboplastin Time (02/13/23 04:49) O2 (02/13/23 04:49) Monitor-Rhythm Ecg Trace Only (02/13/23 04:49) Lipid Panel (02/14/23 06:00) Ed Iv/Invasive Line Start (02/13/23 04:49) Troponin I [place] (02/13/23 04:49) Fentanyl Injection (Fentanyl Injection (02/13/23 05:00) Manual Differential (02/13/23 04:40) Accucheck Stat ONCE (02/13/23 05:14) Covid 19 Inhouse Test (02/13/23 05:31) Medications Given in ED Current Medications Medications Dose Ordered Sig/Janae Route Start Time Stop Time Status Last Admin Dose Admin Fentanyl Citrate 25 mcg ONCE ONCE IVP 02/13/23 05:00 02/13/23 05:01 DC 02/13/23 05:00 25 MCG Vital Signs/I&O 02/13/23 04:34 Temp 36.2 Pulse 61 Resp 16 B/P (MAP) 136/86 (103) Pulse Ox 97 O2 Delivery Room Air Progress Progress Note : Time: 05:43 Progress Note Patient seen and evaluated by me. Eval today includes H&P with "chest pain" protocol - to include CBC, CMP, MAG, troponin, Coags, EKG, Single view CXR. Pertinent physical exam findings - WDWN obese male in NAD. Normal BP , afebrile. Heart is irregularly irregular with rate 60's. Lungs are clear. Abdomen is soft and nontender. No LE edema. Alert and oriented with gross neuro deficits. ddx includes ACS, Viral Syndrome, pneumonia Labs, EKG and CXR independently reviewed and interpreted by me. HIs CBC shows an elevated WBC of 15.4 with normal differential. Normal H&H and platelets. Coags normal. CH12 shows slightly elevated creat at 1.44. Glu up at 196. EKG rate controlled afib. CXR clear. Patient had 25mcg of fentanyl for pain which greatly improved it - down to a "2". After reviewed labs - I was concerned of more likely a viral syndrome - I did add Covid test to the work up which is pending at this time. 0610 Covid neg. Symptoms improved (feels 100% better). Will send home supportive care - no concerning findings to suggest ACS (patient with on-going pain >12h with no elevation in troponin or EKG changes), no pneumonia. Patient provided return precautions in both verbal and written format. All questions are sought and answered. Initial ECG Impression Date: Feb 13, 2023 Initial ECG Impression Time: 04:41 Initial ECG Rate: 68 Initial ECG Rhythm: A Fib/Flutter Initial ECG Impression: Atrial Fibrillation Diagnostic Imaging Diagonstic Imaging: Xray Plain Films/CT/US/NM/MRI: chest Comments CXR independently reviewed and interpreted by me - no infiltrate/effusion NAME: [facility] REC#: [id number] PT STATUS: REG ER : 1955 PHYSICIAN: JOE IBRAHIM MD ADMIT DATE: 02/13/23/ER Draft Date of Exam:02/13/23 CHEST 1 VIEW, AP/PA ONLY INDICATION: Chest pain COMPARISON: None FINDINGS: Single frontal view of the chest demonstrates normal heart size and pulmonary vascularity. The lungs are well aerated and clear. No large pleural effusion or pneumothorax is seen. The visualized osseous structures show no acute abnormalities. IMPRESSION: 1. No acute cardiopulmonary process. Dictated on workstation # [id number] Dict: 02/13/23 0531 Trans: 02/13/23 0538 [facility] [id number] Interpreted by: MANJIT JHA MD Electronically signed by: Departure Impression Primary Impression: Chest pain Qualified Codes: R07.9 - Chest pain, unspecified Additional Impression: Myalgia Disposition: 01 HOME, SELF-CARE Condition: Improved Departure-Patient Inst. Decision time for Depature: 06:29 Referrals: [facility] (PCP) Primary Care Physician LANIE ABREU (Family) Primary Care Physician Patient Instructions: Chest Pain That Is Not Caused by the Heart (DC) Add. Discharge Instructions: Drink plenty of fluids to stay well-hydrated. You can take [id number] extra strength Tylenol, 2 tablets every 6 hours as needed for pain. Continue your daily medications as prescribed by your family doctor. If you develop any new, concerning or emergent symptoms please return to the emergency department for reevaluation. JOE IBRAHIM MD Feb 13, 2023 04:37
[2023-02-13 04:54] LABS: BASOPHILS # (AUTO) 0.1 10^3/uL (0.0-0.1); BASOPHILS % (AUTO) 1 % (0-10); EOSINOPHILS # (AUTO) 0.5 10^3/uL (0.0-0.3); EOSINOPHILS % (AUTO) 3 % (0-10); HEMATOCRIT 49 % (40-54); HEMOGLOBIN 16.9 g/dL (13.3-17.7); LYMPHOCYTES # (AUTO) 2.6 10^3/uL (1.0-4.0); LYMPHOCYTES % (AUTO) 17 % (12-44); MEAN CORPUSCULAR HEMOGLOBIN 30 pg (25-34); MEAN CORPUSCULAR HGB CONC 34 g/dL (32-36); MEAN CORPUSCULAR VOLUME 88 fL (80-99); MEAN PLATELET VOLUME 9.4 fL (9.0-12.2); MONOCYTES % (AUTO) 7 % (0-12); NEUTROPHILS # (AUTO) 11.1 10^3/uL (1.8-7.8); NEUTROPHILS % (AUTO) 72 % (42-75); PLATELET COUNT 350 10^3/uL (130-400); WHITE BLOOD COUNT 15.4 10^3/uL (4.3-11.0)
[2023-02-13] MEDS ORDERED: fentaNYL INJECTION 100 MCG/2 ML VIAL IVP ONE (05:00)
[2023-02-13 05:03] LABS: ALBUMIN 4.1 GM/DL (3.2-4.5)
[2023-02-13 05:04] LABS: CHLORIDE 100 MMOL/L (98-107); INR 1.1 (0.8-1.4); POTASSIUM 4.3 MMOL/L (3.6-5.0); PROTHROMBIN TIME PATIENT 14.5 SEC (12.2-14.7); SODIUM 133 MMOL/L (135-145)
[2023-02-13 05:05] LABS: CALCIUM 9.9 MG/DL (8.5-10.1)
[2023-02-13 05:06] LABS: GLUCOSE 196 MG/DL (70-105); TOTAL PROTEIN 7.6 GM/DL (6.4-8.2)
[2023-02-13 05:07] LABS: CARBON DIOXIDE 24 MMOL/L (21-32)
[2023-02-13 05:08] LABS: BILIRUBIN,TOTAL 0.7 MG/DL (0.1-1.0)
[2023-02-13 05:09] LABS: ALKALINE PHOSPHATASE 32 U/L (40-136); CREATININE SERUM 1.44 MG/DL (0.60-1.30); GFR ESTIMATED 54
[2023-02-13 05:10] LABS: BUN/CREATININE RATIO 13
[2023-02-13 05:12] LABS: ALANINE AMINOTRANSFERASE 31 U/L (0-55); MAGNESIUM 2.3 MG/DL (1.6-2.4)
[2023-02-13 05:24] LABS: EOSINOPHILS % (MANUAL) 1 %; LYMPHOCYTES % (MANUAL) 14 %; MONOCYTES % (MANUAL) 7 %; NEUTROPHILS % (MANUAL) 73 %; REACTIVE LYMPHOCYTES 5 %
--- NOTE | 2023-02-13 05:39 | Diagnostic Imaging Report ---
INDICATION: Chest pain COMPARISON: None FINDINGS: Single frontal view of the chest demonstrates normal heart size and pulmonary vascularity. The lungs are well aerated and clear. No large pleural effusion or pneumothorax is seen. The visualized osseous structures show no acute abnormalities. IMPRESSION: 1. No acute cardiopulmonary process. Dictated by: Dictated on workstation # [id number]
[2023-02-13 06:33] VITALS: BP 98/78
== END 2023-02-13 06:46 | disposition home or self-care (01) ==
LOC: EDUNIT# 04:24 → ER 04:27
DX: R07.9 Chest pain, unspecified (principal); M79.10 Myalgia, unspecified site; D72.829 Elevated white blood cell count, unspecified; I48.91 Unspecified atrial fibrillation; G47.30 Sleep apnea, unspecified; E66.9 Obesity, unspecified; Z68.38 Body mass index [BMI] 38.0-38.9, adult; Z99.89 Dependence on other enabling machines and devices; Z79.01 Long term (current) use of anticoagulants
CPT/HCPCS: 36415; 71045; 80053; 82947; 83735; 84484; 85007; 85027; 85610; 85730; 87636; 93005; 93041; 96374